=== PATIENT | female | born 1995 | race Caucasian/White ===

== ENCOUNTER 2023-10-07 01:42 | Emergency (ER) | payer SELFPAY ==
[2023-10-07 01:44] VITALS: PULSE 99; RESP 18; TEMP 36.2; O2SAT 98; BMI 42.4
[2023-10-07 02:38] LABS: Bacteria 0 SEEN /hpf (None Seen); Mucous, Urine 0 SEEN /hpf (<or=2+); Red Blood Cells-Urine 0 SEEN /hpf (0-5); Squamous Epithelial Cells - UA 0 SEEN /hpf (5-10); White Blood Cells 0 SEEN /hpf (0-5)
[2023-10-07 02:40] LABS: Absolute Lymphocyte Count 2.37 X10^3/uL (0.83-4.51); Absolute Neutrophil Count 7.1 X10^3/uL (2.0-7.7); Basophil# 0.04 X10^3/uL; Basophil% 0.4 % (0-1); Eosinophil# 0.04 X10^3/uL; Eosinophils% 0.4 % (0-5); Hematocrit 40.3 % (37-47); Hemoglobin 13.5 g/dL (12.0-15.0); Lymphocyte # 2.37 X10^3/ul (0.83-4.51); Lymphocyte % 23.4 % (19-41); Mean Corp Hgb Conc 33.5 g/dL (32-36); Mean Corpuscular Hgb 29.8 pg (27.0-32.0); Mean Platelet Vol. 10.6 fl (6.2-12.0); Monocyte# 0.58 X10^3/uL; Monocyte% 5.7 % (0-10); NRBC Flagged by Analyzer 0 % (0-5); Neutrophil # 7.07 X10^3/uL (2.7-7.7); Neutrophil % 69.7 % (47-70); Platelet Count 294 K/mm3 (150-450); RBC Distribution Width CV 12.8 % (11.6-14.6); RBC Distribution Width SD 41.6 fl (35.1-43.9); Red Blood Count 4.53 M/mm3 (4.2-5.4); White Blood Count 10.1 K/mm3 (4.4-11.0)
[2023-10-07 02:43] LABS: Color, Urine Yellow (Yellow); Glucose, Dipstick Normal (Normal); Ketone-Dipstick 5 mg/dl (Negative); Leukocyte Esterase-Dipstick 100 /ul (Negative); Nitrite-Dipstick Negative (Negative); Occult Blood-Urine 10 /ul (Negative); Protein-Dipstick Negative (Negative); Urine Bilirubin Dipstick Negative (Negative); Urine Clarity Clear (Clear); Urine Urobilinogen Normal (Normal)
[2023-10-07 02:48] LABS: Internal QC Validated? YES +Cl - CLEAR BKGD; Pregnancy, Urine Negative Negative
[2023-10-07 02:51] LABS: Amphetamine Urine VISTA NEGATIVE (<1000 ng/mL); Barbiturate Urine VISTA NEGATIVE (< 200 ng/mL); Benzodiazepine Urine VISTA NEGATIVE (< 200 ng/mL); Cocaine Urine VISTA NEGATIVE (< 300 ng/mL); Ecstacy Urine VISTA NEGATIVE (< 500 ng/mL); Methadone Urine VISTA NEGATIVE (< 300 ng/mL); PCP Urine VISTA NEGATIVE (< 25 ng/mL); THC Urine VISTA NEGATIVE (< 50 ng/mL); Vista UDS pH Range 7
[2023-10-07 02:53] LABS: Alcohol, Blood (Medical)-Serum < 3.0 mg/dL; Anion Gap 7 (5-15); BUN 8 mg/dL (7-18); BUN/Creat Ratio 13.2 RATIO (10-20); Calcium,Total 8.8 mg/dL (8.5-10.1); Chloride 110 mmol/L (98-107); EST Glomerular Filtration Rate 126 mL/min (>60); Est Glom Filt Rate - Afr Amer 152 mL/min (>60); Estimated Creatinine Clearance 178.91 ml/min; Glucose 99 mg/dL (74-106); Potassium 3.7 mmol/L (3.5-5.1); Sodium Level 140 mmol/L (136-145)
[2023-10-07] MEDS: Ibuprofen 600 MG Tablet PO (03:11)
--- NOTE | 2023-10-07 05:38 | EDS_ITS ---
HPI History of Present Illness Chief Complaint: Mental Health Informant: patient Narrative Narrative: Patient is a 27-year-old female with past medical history of anxiety and depression. She states she moved here a few months ago from [place] and when she was out of state had a therapist/counselor. She was placed on hydroxyzine and propranolol to help with her symptoms. She states that over the past few weeks she feels that her anxiety and depression have been spiking but there is been no specific life stressors. She states she does not have outpatient follow-up as she did in [place]. She states that she does not have homicidal or suicidal thoughts but with the worsening anxiety and depression and no one to follow-up with the outpatient setting she presents for evaluation [facility] Medical History (Updated 10/07/23 @ 05:[address] Denis Perdue, DO) Marijuana use Physical exam, pre-employment Home Medications ?Medication ?Instructions ?Recorded ?Last Taken ?Type buspirone 7.5 mg tablet 7.5 mg PO BID 30 days #60 tabs 10/07/23 Unknown Rx propranolol 40 mg tablet 40 mg PO DAILY 30 days #30 tabs 10/07/23 Unknown Rx Allergy/AdvReac Type Severity Reaction Status Date / Time No Known Allergies Allergy Verified 10/07/23 01:43 Surgical History (Updated 10/07/23 @ 02:37 by Ada Whitfield) Hx of wisdom tooth extraction Hx of cholecystectomy Social History Smoking Status: Current some day smoker tobacco type: e-cigarettes ROS ROS ED Constitutional Constitutional ED: Denies chills or fever(s) ENT ENT ED: Denies sore throat Cardiovascular Cardiovascular: Denies chest pain Respiratory/Chest Respiratory/Chest: Denies cough or dyspnea Gastrointestinal Gastrointestinal: Denies abdominal pain, diarrhea, nausea or vomiting Genitourinary Genitourinary ED: Reports dysuria Musculoskeletal Musculoskeletal: Denies back pain or myalgias Integumentary Denies rash Neurologic Neurologic: Denies headache(s) Psychiatric Psychiatric: Reports anxiety and depression; Denies suicidal ideation or suicidal thoughts Hematologic/Lymphatic Hematologic/Lymphatic: Denies easy bleeding or easy bruising EXAM Physical Exam Const Vital Signs: 10/07/23 01:44 10/07/23 05:40 Temperature 97.2 F L 98.4 F Temperature Source Temporal Pulse Rate 99 86 Respiratory Rate 18 18 Blood Pressure 126/78 H Blood Pressure Mean 94 Pulse Ox 98 98 Oxygen Delivery Method Room Air Positive well nourished, well developed and obese General Appearance ED: well developed; Negative for pallor Nutritional Appearance: obese HEENT HEENT Narrative: Normocephalic atraumatic Eyes PERRL and EOMs intact bilaterally General Eye ED: Negative for scleral icterus Neck supple Neck Narrative: No nuchal rigidity or meningeal signs Resp normal respiratory effort and clear to auscultation bilaterally Cardio regular rate and regular rhythm GI normal to inspection, nondistended, normoactive bowel sounds, non-tender, non- distended and no masses Auscultation: normoactive bowel sounds Palpation: soft Back/Spine no CVA tenderness Extremity normal to inspection Neuro oriented x3, CN's II-XII intact bilaterally and no sensory deficits noted Sensorium / Orientation: alert Motor Exam: strength 5/5 throughout Psych Psych Narrative: Patient has a tearful/anxious affect but denies homicidal or suicidal ideation Skin no rashes or lesions noted, no wounds and skin turgor normal General Skin Exam: Negative for jaundice or pallor MDM MDM MDM Narrative Medical decision making narrative: Patient arrived to the ER with stable vitals. She reported a past history of anxiety and depression that was treated out of state but is recently new to the area. She reports she is having worsening anxiety and depression symptoms without a obvious stressor. She denies homicidal or suicidal ideation and states that she never attempted to harm herself nor has she ever been hospitalized secondary to her symptoms. At this time as she is complaining of worsening anxiety and depression and does not have any resources I will perform a psychiatric screening exam and have her evaluated by crisis center in case they do feel she would benefit from inpatient therapy. Patient's labs revealed no clinically significant finding. Crisis center evaluated the patient in the hospital and agree that she is low risk of self-harm as she denies any suicidal or homicidal ideations and has never been hospitalized in the past. Therefore she will be provided outpatient treatment options and I will start her back on propranolol and also add BuSpar in order to control her anxiety and depression. Patient agrees that if her symptoms continue to escalate where she denies thoughts of self-harm that she will return for repeat evaluation however at this time she does not have those feelings and is not requiring placement in a psychiatric center there is no need for further workup and is otherwise safe for discharge History & Record Review Discussion w/independent historian: Patient Lab Data Attestation: I reviewed the patient's lab results. Labs: Laboratory Results - last 24 hr 10/07/23 02:29 WBC 10.1 RBC 4.53 Hgb 13.5 Hct 40.3 MCV 89.0 MCH 29.8 MCHC 33.5 RDW Std Deviation 41.6 RDW Coeff of Aubrie 12.8 Plt Count 294 MPV 10.6 Immature Gran % (Auto) 0.400 Neut % (Auto) 69.7 Lymph % (Auto) 23.4 Smyth % (Auto) 5.7 Eos % (Auto) 0.4 Baso % (Auto) 0.4 Absolute Neuts (auto) 7.1 Absolute Lymphs (auto) 2.37 Nucleated RBC % 0 Sodium 140 Potassium 3.7 Chloride 110 H Carbon Dioxide 23.0 Anion Gap 7 BUN 8 Creatinine 0.60 Estim Creat Clear Calc 178.91 Est GFR (MDRD) Af Amer 152 Est GFR (MDRD) Non-Af 126 BUN/Creatinine Ratio 13.2 Glucose 99 Calcium 8.8 Urine Color Yellow Urine Clarity Clear Urine pH 7.0 Ur Specific Redfield 1.010 Urine Protein Negative Urine Glucose (UA) Normal Urine Ketones 5 H Urine Occult Blood 10 H Urine Nitrite Negative Urine Bilirubin Negative Urine Urobilinogen Normal Ur Leukocyte Esterase 100 H Urine RBC 0 SEEN Urine WBC 0 SEEN Ur Squamous Epith Cells 0 SEEN Urine Bacteria 0 SEEN Urine Mucus 0 SEEN Urine Test Negative Urine Opiates Screen NEGATIVE Urine Methadone Screen NEGATIVE Ur Barbiturates Screen NEGATIVE Ur Phencyclidine Scrn NEGATIVE Ur Amphetamines Screen NEGATIVE MDMA (Ecstasy) Screen NEGATIVE U Benzodiazepines Scrn NEGATIVE Urine Cocaine Screen NEGATIVE U Cannabinoids Screen NEGATIVE Ur Drug Screen Comment Ethyl Alcohol < 3.0 Management Discussion w/another healthcare provider: roll scale worker/Case management Discharge Plan Triage Chief Complaint: Mental Health ED Provider: Denis Perdue Dx/Rx/DC Orders Clinical Impression: Anxiety and depression Instructions: Depression: Tips to Help Yourself, Understanding Anxiety Disorders Prescriptions: New buspirone 7.5 mg tablet 7.5 mg PO BID 30 Days Qty: 60 1RF propranolol 40 mg tablet 40 mg PO DAILY 30 Days Qty: 30 1RF Stand Alone Forms: ED Work / School Excuse Primary Care Provider: Care Physician,No Primary Referrals: Care Physician,No Primary [Primary Care Provider] - Activity Restrictions/Additional Instructions: Please follow-up with the services provided by crisis center and return to the ER should you have any further concerns Print Language: Chinese Disposition Disposition: Home, Self Care Discharge Date/Time: 10/07/23 05:48
[2023-10-07 05:40] VITALS: BP 126/78; PULSE 86; RESP 18; TEMP 36.9; O2SAT 98
== END 2023-10-07 05:48 | disposition home or self-care (01) ==
PROVIDERS: Emergency Provider Emergency Medicine; Visit Provider Emergency Medicine
DX: F41.9 Anxiety disorder, unspecified (principal); F32.A Depression, unspecified; F17.210 Nicotine dependence, cigarettes, uncomplicated; Z90.49 Acquired absence of other specified parts of digestive tract; R30.0 Dysuria; E66.9 Obesity, unspecified
CPT/HCPCS: 80048; 80307; 81001; 81025; 82077; 85025; 99284